=== PATIENT | male | born 1985 | race Native Hawaiian/Other Pacific Islander ===

== ENCOUNTER 2016-08-29 07:46 | Day surgery (SDC) | payer BC | END 2016-08-29 10:52 | disposition home or self-care (01) | LOC: OR 07:46 | PROC: 0JPT0XZ Removal of Tunneled Vascular Access Device from Trunk Subcutaneous Tissue and Fascia, Open Approach (ICD-10-PCS; principal; 2016-08-29) | DX: Z45.2 Encounter for adjustment and management of vascular access device (principal) | CPT/HCPCS: J0690; J2704 ==